=== PATIENT | female | born 1970 | race Caucasian/White ===

== ENCOUNTER → 2022-08-05 15:18 | Outpatient (CLI) | payer MEDICAID, SELFPAY | PROVIDERS: PCP Nurse Practitioner; Visit Provider Nurse Practitioner | DX: R06.83 Snoring (principal); R40.0 Somnolence; E66.9 Obesity, unspecified; Z68.41 Body mass index [BMI] 40.0-44.9, adult; G47.30 Sleep apnea, unspecified | CPT/HCPCS: 95806 ==

== ENCOUNTER → 2022-10-26 11:48 | Outpatient (CLI) | payer MEDICAID, SELFPAY ==
[2022-10-26 18:32] LABS: Iron 82 ug/dL (37-170)
[2022-10-26 19:03] LABS: Thyroid Stimulating Hormone 4.94 uIU/mL (0.465-4.68)
[2022-10-26 19:08] LABS: Ferritin 32.4 ng/ml (11.1-264)
[2022-10-30 08:17] LABS: Methylmalonic Acid 136 nmol/L (0-378)
[2022-11-05 18:08] LABS: 1,25 Dihydroxy Vitamin D 26 pg/mL (.); 1,25-Dihydroxy, Vitamin D-2 <10 pg/mL (.); 1,25-Dihydroxy, Vitamin D-3 26 pg/mL (.)
== END ==
PROVIDERS: PCP Family Medicine; Visit Provider Family Medicine
DX: E83.10 Disorder of iron metabolism, unspecified (principal)
CPT/HCPCS: 82131; 82652; 82728; 83540; 84443

== ENCOUNTER 2023-04-20 18:26 | Emergency (ER) | payer OTHER, MEDICAID, SELFPAY ==
[2023-04-20 18:27] VITALS: BP 148/74; PULSE 97; RESP 18; TEMP 36.6; O2SAT 99; BMI 38.5
[2023-04-20 18:36] VITALS: BMI 38.5
--- NOTE | 2023-04-20 18:37 | XR_ITS ---
PROCEDURE INFORMATION: Exam: XR Left Knee Exam date and time: 04/20/2023 6:33 PM Age: 52 years old Clinical indication: Patient HX: Left knee pain since Monday, occasionally locks up she states and cant move it. ; Additional info: Painful knee no trauma TECHNIQUE: Imaging protocol: Radiologic exam of the left knee. Views: 1 or 2 views. COMPARISON: No relevant prior studies available. FINDINGS: Bones/joints: No evident fracture. [id number] tricompartmental degenerative changes. Associated mild lateral listhesis of the tibia in relation to the femur. Well corticated bony or calcific densities overlying the anterior knee joint best seen on lateral view suggesting loose bodies. Soft tissues: Normal. IMPRESSION: DJD and possible loose bodies. No acute findings.
--- NOTE | 2023-04-20 18:57 | HMH.EDGENADL ---
Discharge Plan Disposition Patient Disposition: Home, Self-Care Chief Complaint: PAIN Prescriptions Prescriptions: No Action omeprazole 20 mg capsule,delayed release(DR/EC) 20 mg PO methylprednisolone [Medrol (Pastor)] 4 mg tablets,dose pack See Rx Instructions PO PER PKG DIR Qty: 21 0RF Rx Instructions: PO PER PKG DIR Referrals Follow up/Referrals: Zakia Liriano APRN [Primary Care Provider] - See instructions Clinical Impressions Clinical Impression: Meniscus degeneration Discharge ED Provider: Caio Carrion General Adult HPI General Chief complaint: PAIN Stated complaint: LT knee pain Time Seen by Provider: 04/20/23 18:55 Mode of Arrival: Ambulatory Source of Information: Patient Limitations: No Limitations Description of Symptoms (Recalled from ER Triage Doc. by RN): c/o L knee pain, states began having pain monday upon waking up, states went to sleep with knee bent. Pt reports knee will feel like it's locked will pop and then releases . Pt reports seen Dr. Robles on Monday, gave steriods, pt reports states can't take steriods. Has been doing RICE and has tried a knee immobilizer. History of Present Illness HPI narrative: 52-year-old white female presents with a 2-month history of left knee pain. She is seeing her primary care Dr. Robles he has ordered physical therapy and has scheduled an MRI and are waiting preauthorization of this. She reports that she is been having the knee lock up on her. And came to the emergency department. She reports an allergy to latex she had a gastric bypass 2 weeks ago and cannot take steroids or nonsteroidals by mouth. She can take injections and use topical. Related Data Home Medications Medication Instructions Recorded Confirmed omeprazole 20 mg capsule,delayed 20 mg PO 04/18/23 04/18/23 release Previous Rx's Medication Instructions Recorded methylprednisolone 4 mg tablets in See Rx Instructions PO PER PKG DIR 04/18/23 a dose pack (Medrol (Pastor)) #21 tabs Allergies Allergy/AdvReac Type Severity Reaction Status Date / Time latex AdvReac Mild Verified 04/18/23 11:14 [facility] Disclaimer: The information contained in this section may have been updated after the patient was seen, as this information can be updated by other users. Medical History Asthma Meniscus degeneration Surgical History History of cholecystectomy History of tubal ligation History of wisdom tooth extraction Family History Other Cancer Diabetes Social History Smoking Status: Never smoker alcohol intake: current current occupational status: unemployed Travel in the last 8 weeks: None ROS Obtained: Yes Systems reviewed as appropriate & no additional complaints except as documented Physical Exam General General appearance: alert and in no apparent distress Head Head exam: atraumatic and normocephalic Eye Eye exam: Present normal appearance and PERRL ENT ENT exam: Present normal exam and normal oropharynx Neck Neck exam: Present normal inspection Chest Chest inspection: Present normal inspection Respiratory Respiratory exam: Present normal lung sounds bilaterally Cardiovascular Cardiovascular exam: Present regular rate and normal rhythm Extremities Exam Extremities exam: Absent full ROM (The patient has pain with full extension of the knee there is no ballotable fluid in the knee capsule the anterior posterior cruciate ligaments are intact medial and lateral collateral ligaments are intact) Neurological Exam Neurological exam: Present alert, oriented X3 and CN II-XII intact Medical Decision Making Medical Records MR Comment: 52-year-old white female complaining of left knee pain of 2 months durat
--- NOTE | 2023-04-20 19:06 | PC.NURSE ---
rounded on patient, doctor at bedside
[2023-04-20 19:25] VITALS: BP 100/64; PULSE 85; RESP 19; TEMP 36.7; O2SAT 97
== END 2023-04-20 19:34 | disposition home or self-care (01) ==
PROVIDERS: Emergency Provider Emergency Medicine; PCP Nurse Practitioner
DX: M23.301 Other meniscus derangements, unspecified lateral meniscus, left knee (principal); J45.909 Unspecified asthma, uncomplicated; Z98.84 Bariatric surgery status
CPT/HCPCS: 73560; 96372; 99283; 99284

== ENCOUNTER → 2023-05-05 13:43 | Outpatient (CLI) | payer MEDICAID, SELFPAY | PROVIDERS: PCP Nurse Practitioner; Visit Provider Family Medicine | DX: M25.562 Pain in left knee (principal) ==

== ENCOUNTER 2023-05-08 12:06 | Emergency (ER) | payer OTHER, MEDICAID, SELFPAY ==
[2023-05-08 12:07] VITALS: BP 129/85; PULSE 81; RESP 18; TEMP 36.7; O2SAT 98; BMI 37.8
--- NOTE | 2023-05-08 12:14 | CT_ITS ---
PROCEDURE INFORMATION: Exam: CT Left Lower Extremity Without Contrast, Knee Exam date and time: 05/08/2023 2:52 PM Age: 52 years old Clinical indication: Limp; Additional info: Left knee locked-- knee semi bent and locked TECHNIQUE: Imaging protocol: CT of the left lower extremity without contrast was performed. Exam focused on the knee. Radiation optimization: All CT scans at this facility use at least one of these dose optimization techniques: automated exposure control; mA and/or kV adjustment per patient size (includes targeted exams where dose is matched to clinical indication); or iterative reconstruction. REPORTING DATA: Count of CT and Cardiac NM exams in prior 12 months: This patient has received 0 known CTs and 0 known cardiac nuclear medicine studies in the 12 months prior to the current study. COMPARISON: CR XR KNEE LT 2V 04/20/2023 6:33 PM FINDINGS: Bones/joints: Small suprapatellar effusion. Fluid extending into the posterior mediolateral knee compartments. Patellofemoral degenerative changes. Loose bodies within the intercondylar notch. Cruciate ligaments cannot be adequately evaluated. Consider follow-up with magnetic resonance imaging to further evaluate for ligamentous disruption. Soft tissues: Normal. IMPRESSION: 1. Small suprapatellar effusion. 2. Fluid extending into the posterior mediolateral knee compartments. 3. No evidence of acute osseous injury. 4. Cruciate ligaments cannot be adequately evaluated. Consider follow-up with magnetic resonance imaging to further evaluate for ligamentous disruption.
[2023-05-08 12:17] VITALS: BMI 37.8
--- NOTE | 2023-05-08 12:27 | PC.NURSE ---
PT TO CT
--- NOTE | 2023-05-08 12:34 | HMH.EDGENADL ---
Discharge Plan Disposition Patient Disposition: Home, Self-Care Chief Complaint: Extremity Problem,Nontraumatic Prescriptions Prescriptions: No Action omeprazole 20 mg capsule,delayed release(DR/EC) 20 mg PO Referrals Follow up/Referrals: Zakia Liriano APRN [Primary Care Provider] - See instructions Clinical Impressions Clinical Impression: Acute knee pain Discharge ED Provider: Ruel Clark General Adult HPI General Chief complaint: Extremity Problem,Nontraumatic Stated complaint: knee pain, no known accident Time Seen by Provider: 05/08/23 12:10 Mode of Arrival: Wheelchair Limitations: No Limitations Description of Symptoms (Recalled from ER Triage Doc. by RN): PT C/O LEFT KNEE LOCKING UP FOR ABOUT 1 MONTH, NO INJURY History of Present Illness HPI narrative: 52-year-old female presents with left knee locking up for about a month. She says she was scheduled to have an MRI however had the had to postpone it a weeks because she recently had bariatric surgery and the clips may move if she does MRI. Her primary care physician told her to come into the emergency room if it was locked up. She has a appointment with the orthopedic surgeon tomorrow. Related Data Home Medications Medication Instructions Recorded Confirmed omeprazole 20 mg capsule,delayed 20 mg PO 04/18/23 04/25/23 release Allergies Allergy/AdvReac Type Severity Reaction Status Date / Time latex AdvReac Mild Verified 04/25/23 11:28 [facility] Disclaimer: The information contained in this section may have been updated after the patient was seen, as this information can be updated by other users. Medical History Asthma Meniscus degeneration Surgical History History of cholecystectomy History of tubal ligation History of wisdom tooth extraction Family History Other Cancer Diabetes Social History Smoking Status: Former smoker alcohol intake: current current occupational status: unemployed Travel in the last 8 weeks: None ROS Obtained: Yes All systems reviewed & no additional complaints except as documented Constitutional Constitutional: Denies fatigue and Denies headache(s) Eyes Eyes: Denies eye pain ENT Ears, Nose, Mouth, and Throat: Denies headache(s) Cardiovascular Cardiovascular: Denies dyspnea Respiratory Respiratory: Denies dyspnea and Denies wheezing Gastrointestinal Gastrointestingal: Denies constipation Genitourinary Female Genitourinary: Denies dysuria Musculoskeletal Musculoskeletal: Denies joint swelling Integumentary/Breasts Skin/Breast: Denies furuncle Neurologic Neurologic: Denies headache(s) Endocrine Endocrine: Denies fatigue Hematologic/Lymphatic Henatologic/Lymphatic: Denies easy bruising Allergic/Immunologic Allergic/Immunologic: Denies wheezing Physical Exam General General appearance: alert and in no apparent distress Eye Eye exam: Present PERRL and EOMI ENT ENT exam: Present normal exam and normal oropharynx Neck Neck exam: Present normal inspection Chest Chest inspection: Present symmetric chest wall rise Respiratory Respiratory exam: Present normal lung sounds bilaterally; Absent respiratory distress Cardiovascular Cardiovascular exam: Present regular rate and normal rhythm Abdominal Exam Abdominal exam: Present soft; Absent distention, tenderness, guarding, rebound, Wallace's sign or tenderness at McBurney's Point Extremities Exam Extremities exam: Present other (Left knee with tenderness along joint 9 decreased range of motion to extension but flexes. Neurologically intact) Back Exam Back exam: Present normal inspection Neurological Exam Neurological exam: Present alert and oriented X3 Psychiatric Psychiatric exam: Present normal affec
[2023-05-08 13:00] VITALS: BP 120/76; PULSE 62; RESP 20; O2SAT 98
[2023-05-08 13:30] VITALS: BP 110/75; PULSE 74; RESP 16; O2SAT 98
--- NOTE | 2023-05-08 14:30 | PC.NURSE ---
PT AND FAMILY UPDATED, WARM BLANKET PROVIDED
[2023-05-08 14:32] VITALS: BP 129/72; PULSE 60; RESP 20; O2SAT 97
--- NOTE | 2023-05-08 14:50 | PC.NURSE ---
PT TO CT AGAIN
--- NOTE | 2023-05-08 16:33 | PC.NURSE ---
contacted rad to check on status of ct result-states in locked status
--- NOTE | 2023-05-08 16:45 | PC.NURSE ---
rounded on pt, updated pt on status of ct scan results pt requesting something to eat-okayed per ER MD, called dietary requested tray call conley in reach, visitor at BS
--- NOTE | 2023-05-08 16:56 | PC.NURSE ---
notified ER pt ct scan is resulted in the computer
[2023-05-08 17:10] VITALS: BP 138/90; PULSE 83; RESP 16; TEMP 36.7; O2SAT 97
== END 2023-05-08 17:10 | disposition home or self-care (01) ==
PROVIDERS: Emergency Provider Emergency Medicine; PCP Nurse Practitioner
DX: M25.562 Pain in left knee (principal); J45.909 Unspecified asthma, uncomplicated; Z87.891 Personal history of nicotine dependence
CPT/HCPCS: 73700; 99284

== ENCOUNTER 2023-05-11 17:00 | Outpatient (RCR) | payer OTHER, MEDICAID, SELFPAY ==
--- NOTE | 2023-04-21 18:03 | HMH.PTOPEV ---
PT Outpatient Evaluation Rehab PT Outpatient Evaluation Start: 04/21/23 16:55 Freq: Status: Active Protocol: Document 04/21/23 16:58 TANI (Rec: 04/21/23 18:02 TANI [id number]) E-signed By Carol Castro, PT Outpatient Therapy Subjective History Subjective History Pt presents to the PT clinic with reports of L knee pain that began ~2 months ago. Pt reports she tried a knee brace when she noticed the pain but that it didnt make much of a difference. Pt reports on Monday night (04/17) when she was sitting with her knee bent under her, when she went to straighten it out and she could not get it straight. Pt reports she was unable to put weight on it and that it was stuck for ~5 hours. Pt reports she has noticed clicking/ popping and increased pain when her knee gets stuck . Pt reports difficulty with walking, squatting, bending, stairs and sleeping. Pt reports she had tried yoga, exercise, cold pack, hot pack, biofreeze and medication to assist with her pain. Pt reports she works at [employer]. PMH: hashimotos disease Chief Complaint Pain,Stiff,Clicks,Swelling, Catches/Locks,Gives out/ Unstable,Weakness Symptom Type Ache,Sharp Symptoms Relieved By Rest/Positioning,OTC Meds, Activity Symptoms Aggravated By Sitting,Bending/Stooping, Twisting Prior Functional Limitations None Current Functional Limitations Lifting,Housework,Dressing, Desk Work/Reading,Sleeping, Sitting,Squatting,Walking, Stairs,Bending/Stooping Symptom Description Intermittent,Activity Dependent Level of pain today (0-10) 0 Pain scale - at its best (0-10) 0 Pain scale - at its worst (0-10) 9 Hip/Knee Eval Gait Observation General Gait Pattern Observation Antalgic Gait,Decrease Weight Bear
== END 2023-05-11 17:05 | disposition home or self-care (01) ==
LOC: PT 17:00
PROVIDERS: PCP Family Medicine; Visit Provider Nurse Practitioner
DX: M23.301 Other meniscus derangements, unspecified lateral meniscus, left knee (principal)
CPT/HCPCS: 97163

== ENCOUNTER → 2023-05-26 16:54 | Outpatient (CLI) | payer MEDICAID, SELFPAY ==
--- NOTE | 2023-05-26 16:58 | MR_ITS ---
PROCEDURE INFORMATION: Exam: MR Left Lower Extremity Joint Without Contrast, Knee Exam date and time: 05/26/2023 4:52 PM Age: 52 years old Clinical indication: Pain; Knee; Left; Additional info: Pain, decreased motion TECHNIQUE: Imaging protocol: Magnetic resonance imaging of the left lower extremity joint without contrast. Exam focused on the knee. COMPARISON: CT KNEE LT WO CON 05/08/2023 2:52 PM FINDINGS: Bones/joints: The medial compartment has full-thickness chondral loss with subchondral bone marrow edema. There is high-grade chondromalacia centrally in the lateral femoral condyle measuring 7 mm. There is high-grade chondromalacia along the medial facet of the patella. Marginal osteophytes are present. The alignment is near anatomic. No acute fracture. Small-sized knee joint effusion. Calcified joint body in the suprapatellar joint recess measuring 1.1 cm. Medial meniscus: There is a tear of the medial meniscus posterior root with marked meniscal extrusion. Lateral meniscus: Unremarkable. No tear. Anterior cruciate ligament: Unremarkable. No tear. Posterior cruciate ligament: Unremarkable. No tear. Medial capsule and supporting structures: Medial collateral ligamentous chronic scar remodeling without discontinuity. Lateral capsule and supporting structures: Unremarkable. No tear. Extensor mechanism of knee: Quadriceps tendinosis. Patellar tendinosis with tendinous laxity. Soft tissues: Calcified joint body in the intercondylar notch measures 7 mm. Mild subcutaneous soft tissue edema is seen anterior to the knee. IMPRESSION: 1. Tricompartmental osteoarthrosis of the left knee marked in severity in the medial compartment. Small knee joint effusion with multiple joint bodies. 2. Tear of the medial meniscus posterior root with marked meniscal extrusion. 3. Quadriceps and patellar tendinosis.
== END ==
PROVIDERS: PCP Nurse Practitioner; Visit Provider Family Medicine
DX: M25.562 Pain in left knee (principal); S83.242A Other tear of medial meniscus, current injury, left knee, initial encounter
CPT/HCPCS: 73721

== ENCOUNTER → 2023-08-11 15:34 | Outpatient (CLI) | payer OTHER, MEDICAID, SELFPAY ==
--- NOTE | 2023-08-11 15:47 | XR_ITS ---
FINAL REPORT CLINICAL HISTORY: cough, left knee surgery 18 COMPARISON: None FINDINGS: Two views of the chest were obtained. The heart size and pulmonary vascularity are within normal limits. The mediastinum is normal. No acute pulmonary abnormality is identified. There is no pneumothorax. The bony thorax is intact. IMPRESSION: No active cardiopulmonary disease. Reviewed, Interpreted and Dictated by Micah Zurita III, MD Transcribed by Jeanette Grant Authenticated and [facility]
[2023-08-11 15:51] LABS: Basophils % 0.5 % (0.1-2.0); Eosinophils # 0.2 K/mm3 (0.0-0.4); Eosinophils % 2.4 % (0.1-12.0); Hematocrit 41.6 % (37.0-47.0); Hemoglobin 14.1 g/dL (12.2-16.2); Lymphocytes # 2.6 K/mm3 (0.7-4.5); Lymphocytes % 36.1 % (10-50); Mean Corpuscular HGB Conc 33.9 g/dL (31.8-35.4); Mean Corpuscular Hemoglobin 31.9 pg (27.0-31.2); Mean Corpuscular Volume 94.2 fl (81-99); Mean Platelet Volume 10.7 fl (7.4-10.4); Monocytes # 0.2 K/mm3 (0.1-1.0); Monocytes % 3.2 % (1.7-9.3); Neutrophils # 4.1 K/mm3 (1.8-7.8); Neutrophils % 57.9 % (37.0-80.0); Platelet Count 183 K/mm3 (142-424); Red Blood Count 4.42 M/mm3 (4.20-5.40); White Blood Count 7.1 K/mm3 (4.8-10.8)
--- NOTE | 2023-08-11 16:11 | ECG_ITS ---
APPROVED REPORT Exam: Resting ECG HR:63 bpm ECG Measurements Heart Rate 63 AXES OH 159 P 46 QRSd 98 QRS 51 QT 393 T 47 QTc 400 Conclusion SINUS RHYTHM NORMAL ECG UNCONFIRMED REPORT Electronically signed by : Keshawn Akbar MD 08/12/2023 11:02:10
[2023-08-11 16:27] LABS: Alanine Aminotransferase 53 U/L (12-78); Albumin Level 4.4 g/dl (3.5-5.0); Albumin/Globulin Ratio 1.6 (1.1-1.8); Alkaline Phosphatase 64 U/L (38-126); Aspartate Amino Transferase 65 U/L (14-36); Bilirubin,Total 1.3 mg/dl (0.2-1.3); Blood Urea Nitrogen 13 mg/dl (7-17); Calcium 9.6 mg/dl (8.4-10.2); Carbon Dioxide 28 mmol/L (22.0-30.0); Chloride 106 mmol/L (98-107); Estimated Glomerular Filt Rate 88 ml/min (>60); GFR (African American) 106 ML/MIN (>60); Globulin 2.8 g/dL (1.3-3.2); Glucose 97 mg/dl (74-100); Sodium 143 mmol/L (136-145); Total Protein,Serum 7.2 g/dl (6.3-8.2)
== END ==
PROVIDERS: PCP Family Medicine; Visit Provider Orthopaedic Surgery
DX: S83.232D Complex tear of medial meniscus, current injury, left knee, subsequent encounter (principal); M94.262 Chondromalacia, left knee; M23.42 Loose body in knee, left knee; Y99.9 Unspecified external cause status
CPT/HCPCS: 36415; 71046; 80053; 85025; 93005

== ENCOUNTER 2023-08-16 10:34 | Day surgery (SDC) | payer OTHER, MEDICAID, SELFPAY ==
[2023-08-15 11:26] VITALS: BMI 37.8
[2023-08-16] VITALS (9 sets, daily range): BP systolic 111–147; BP diastolic 53–87; PULSE 43–76; RESP 12–18; TEMP 36.2–36.6; O2SAT 96–98
--- NOTE | 2023-08-16 12:59 | EXP.ANES.CKL ---
[facility] Disclaimer: The information contained in this section may have been updated after the patient was seen, as this information can be updated by other users. Medical History Asthma Meniscus degeneration Surgical History History of cholecystectomy History of tubal ligation History of wisdom tooth extraction Hx of gastric bypass Family History Other Cancer Diabetes Social History (Updated 08/16/23 @ 11:07 by Fina Mejia RN) Smoking Status: Former smoker alcohol intake: never substance use type: denies use current occupational status: unemployed Travel in the last 8 weeks: None [facility] Anesthesia Checklist Patient Identification Patient Identification: Verbal (Name & ) Structural Data Admitted From: Home Planned Operative Procedure/s: lt kinee arthro Consent for Planned Operative Procedure(s) Verified: Yes NPO Status Verified Time NPO: 00:00 Additional verifications Anesthesia Reactions: Yes (HARD TO WAKE UP AFTER LAST SURGERY) Hx Blood Transfusions: No Blood Transfusion Reaction: No Airway Assessment Mallampati Score:: Class I C-Spine Mobility Assessed: Yes TMJ Mobility Assessed: Yes Dentition: Good Dentition Neurological Assessment Level of Consciousness: Awake, Alert and Appropriate Anesthesia Plan Anesthesia Risk discussed: Yes Anesthesia Plan: Verified ASA Class: II Anesthesia Type: General
--- NOTE | 2023-08-16 15:29 | EXP.OP.NOTE ---
Date of procedure: 08/16/23 Pre-op Diagnosis:: Left knee medial meniscus tear osteoarthritis intra-articular loose bodies Post-op Diagnosis:: Same with anterior horn lateral meniscus tear kissing lesion lateral femoral condyle Procedure performed:: 1. Left knee arthroscopy with partial medial and lateral meniscectomies #2 left knee arthroscopy with removal intra-articular loose bodies #3 left knee arthroscopy chondroplasty lateral femoral condyle Surgeon:: Roel Garcia DO ROAD SUPERVISOR OF ENGINES:: Other Anesthesia: GETA Estimated blood loss (mL): 0 Operative findings:: See operative note findings Operative note:: Patient was identified preoperatively. Left knee was marked with yes my initials. Transferred operative suite. Placed upon the operating bed. General anesthesia administered. Airway secured. Left lower extremity prepped and draped in normal sterile fashion. Once prepped and draped final operative timeout performed to identify proper patient procedure and extremity. Everyone involved in the case agreed. There were no counter indications to beginning. She did receive preoperative antibiotics. Marking pen was used to estefani the bony landmarks of the knee and standard portal sites. Esmarch was used to exsanguinate the extremity and pneumatic tourniquet inflated to 300 mmHg. Skin knife was used to incise standard anterior lateral portal. Blunt with trocar was placed in the patellofemoral joint. Exchanged with a camera. I swept directly into the medial joint line where the anterior medial portal was made. This is exchanged with a probe. There is tearing of the posterior horn and body of the medial meniscus. There is a kissing lesion along the rim of the medial tibia and the most medial aspect of the medial femoral condyle. Using combination of straight biter and sucker shaver partial medial meniscectomy was performed back to stable rim. Tensions brought in the intercondylar notch. Within the intercondylar notch there was an intra-articular loose body which was removed with the grasper. There is also evidence of additional loose body within the intercondylar notch which was also removed with a grasper. ACL was seen and intact. Attention brought to the lateral joint line. Within the lateral joint line there was tearing of the anterior horn of the lateral meniscus which was flipped and a kissing lesion on the anterior aspect of the lateral femoral condyle. There is loose hanna cartilage in this area there which was debrided with a chondroplasty of the lateral femoral condyle with a sucker shaver lightly. Partial lateral meniscectomy was performed to remove the torn flipped tissue of the anterior horn of the lateral meniscus. Tensions brought to the medial lateral gutters and back in the patellofemoral joint there is no other pathology seen camera was removed the joint was drained. Local anesthesia filtrated the portal sites. Skin closed with nylon stitch. Sterile dressing placed. Patient waken anesthesia taken recovery in stable condition. Condition: stable Disposition: PACU Complications:: None apparent
--- NOTE | 2023-08-16 15:38 | P.PNANES_ITS ---
[facility] Anesthesia Record Part I Anesthesia Record I Intake, IV Amount: 1,300 Hydration: Adequate Estimated blood loss (mL): 50 Urine output (mL): 0 Blood Products used (#): none Blood Pressure: 119/53 SaO2: 96 Pulse Rate: 48 Airway Patency: Patent Respiratory Rate: 12 Temperature: 97.7 F Patient is:: Awake, Drowsy and Stable Stable to PACU at:: 15:29
--- NOTE | 2023-08-17 07:24 | EXP.ANES.II ---
[facility] Anesthesia Record Part II Anesthesia Record Part II Discharge Time: 15:52 Destination: Surgical Day Care (OP Surgery) PACU nurse assessment reviewed?: Yes Patient Condition:: Good Anesthesia Complications:: None Swallowing reflex intact?: Yes Airway Patency: Patent Cyanosis?: No Blood Pressure: 122/74 SaO2: 97 Respiratory Rate: 16 Pulse Rate: 69 Temperature: 97.7 F Mental Status: Alert & Oriented Pain level:: 5 Nausea and/or vomitting:: None Intake, IV Amount: 1,300 Hydration: Adequate
[2023-08-17 07:27] VITALS: BP 122/74; RESP 16; TEMP 36.5
[2023-08-17 07:30] VITALS: PULSE 69; O2SAT 97
== END 2023-08-16 16:45 | disposition home or self-care (01) ==
PROVIDERS: PCP Nurse Practitioner; Visit Provider Orthopaedic Surgery
PROC: (CPT 29870; principal; 2023-08-16 12:45)
DX: S83.232A Complex tear of medial meniscus, current injury, left knee, initial encounter (principal); M23.42 Loose body in knee, left knee; M94.262 Chondromalacia, left knee; Z79.899 Other long term (current) drug therapy
CPT/HCPCS: 29880; 29879; 96374; J2405

== ENCOUNTER → 2023-09-13 09:22 | Outpatient (CLI) | payer OTHER, MEDICAID, SELFPAY ==
[2023-09-13 18:59] LABS: Adenovirus,PCR Not Detected (NotDetected); Coronavirus 19, PCR Not Detected (NotDetected); Coronavirus NL63 Not Detected (NotDetected); Coronovirus HKU1,PCR Not Detected (NotDetected); Parainfluenza 3, PCR Not Detected (NotDetected); Parainfluenza 4, PCR Not Detected (NotDetected); Respiratory Syncytial Virus Not Detected (NotDetected)
[2023-09-13 19:09] LABS: Basophils % 0.4 % (0.1-2.0); Eosinophils # 0.2 K/mm3 (0.0-0.4); Eosinophils % 2.1 % (0.1-12.0); Hematocrit 42.5 % (37.0-47.0); Hemoglobin 14.4 g/dL (12.2-16.2); Lymphocytes # 2.4 K/mm3 (0.7-4.5); Lymphocytes % 34.5 % (10-50); Mean Corpuscular HGB Conc 33.9 g/dL (31.8-35.4); Mean Corpuscular Hemoglobin 32.9 pg (27.0-31.2); Mean Corpuscular Volume 97.2 fl (81-99); Mean Platelet Volume 12.7 fl (7.4-10.4); Monocytes # 0.3 K/mm3 (0.1-1.0); Monocytes % 4.9 % (1.7-9.3); Neutrophils % 58.1 % (37.0-80.0); Platelet Count 197 K/mm3 (142-424); Red Blood Count 4.37 M/mm3 (4.20-5.40); White Blood Count 6.9 K/mm3 (4.8-10.8)
[2023-09-13 21:42] LABS: Coronavirus 229E Not Detected (NotDetected); Coronavirus OC43 Not Detected (NotDetected); Human Metapneumovirus Not Detected (NotDetected); Influenza A, PCR Not Detected (NotDetected); Influenza AH1, 2009 Not Detected (NotDetected); Influenza AH1, PCR Not Detected (NotDetected); Influenza AH3,PCR Not Detected (NotDetected); Influenza B, PCR Not Detected (NotDetected); Parainfluenza 1, PCR Not Detected (NotDetected); Parainfluenza 2, PCR Not Detected (NotDetected); Rhinovirus/Enterovirus Not Detected (NotDetected)
== END ==
PROVIDERS: PCP Nurse Practitioner; Visit Provider Nurse Practitioner
DX: J06.9 Acute upper respiratory infection, unspecified (principal); R30.0 Dysuria
CPT/HCPCS: 85025; 87086; 87632; 87635